=== PATIENT | female | born 1935 | race Hispanic/Latino ===

== ENCOUNTER 2017-04-17 09:48 | Outpatient (CLI) | payer MEDICARE ==
--- NOTE | 2017-04-17 13:55 | Cat Scan Report ---
CT ABDOMEN AND PELVIS WITHOUT CONTRAST: 04/17/17 09:48:00 CLINICAL:Epigastric pain. TECHNIQUE: Volumetric acquisition and 1.25 millimeter scan reconstructions from the lung bases through the iliac crest. The study was performed with oral contrast. FINDINGS: Abdomen:The right hemidiaphragm is elevated and a significant portion of the chest is included on the exam. A peripheral pleural-based mass of the right lower lobe has a lobular contour and measures 3.2 x 1.5 cm. A few air bronchograms are identified within it. A few vessels extend to the mass suggesting that this may be an AVM. A noncalcified nodule of the right lower lobe measures 5.0 mm. A second spiculated nodule of the right lower lobe is noncalcified and measures 6.6 mm. An irregular peripheral nodule of the right middle lobe measures 1.1 cm. It appears that the right upper lobe is relatively small or has been resected. There is pruning of the right upper lobe bronchus with pleural thickening at the bronchus. Medial pleural thickening of the right lower lobe. A left upper lobe noncalcified lung nodule measures 1.0 cm. No pleural effusion. Normal liver, bile ducts and gallbladder. Normal stomach and distal esophagus. The pancreas is atrophic and fatty replaced. The spleen is small with a few granulomatous calcifications. The adrenal glands and kidneys are normal. Mild ectasia of the abdominal aorta. The small bowel is normal. Moderate stool throughout the colon. Questionable mass of the cecum at the ileocecal valve. There is soft tissue density both anterior and posterior to the valve. An appendix is not identified. Diverticulosis of the distal left colon and sigmoid colon. No signs of diverticulitis. No ascites and no pneumoperitoneum. Pelvis: Absence of the uterus and normal vaginal cuff. Normal urinary bladder and rectum.No pelvic mass or fluid. Bone windows demonstrate no suspicious bone lesion. Status post left total hip replacement. IMPRESSION: 1. Several bilateral multilobar noncalcified lung nodules and a pleural-based 3.2 cm right lower lobe pleural-based mass. Recommend CT chest without and with contrast. 2. A questionable mass in the cecum. This may be stool but should be considered tumor until proven otherwise. 3. Diverticulosis of the distal left colon and sigmoid colon but no sign of diverticulitis.
== END 2017-04-17 09:49 | disposition home or self-care (01) ==
LOC: SPVIMAG 09:48
PROVIDERS: ATTEND Internal Medicine Gastroenterology
DX: K57.30 Diverticulosis of large intestine without perforation or abscess without bleeding (principal); J98.4 Other disorders of lung; R91.8 Other nonspecific abnormal finding of lung field; K86.89 Other specified diseases of pancreas; D73.89 Other diseases of spleen; Z96.642 Presence of left artificial hip joint; Z90.710 Acquired absence of both cervix and uterus
CPT/HCPCS: 74176